=== PATIENT | male | born 1955 | race Two or more races ===

== ENCOUNTER 2023-02-27 04:36 | Inpatient (IN) | payer BC, MEDICAID ==
[~2023-02-27] VITALS: Ht 180.3 cm; Wt 156.7 kg
[2023-02-27 05:27] LABS: Basophils # (auto) 0.1 10 ^3/uL (0-0.2); Basophils % (auto) 1.1 % (0.0-2.0); Eosinophils # (auto) 0.4 10 ^3/uL (0-0.8); Eosinophils % (auto) 4.7 % (0.0-7.0); Hematocrit 40.5 % (41.0-53.0); Hemoglobin 13.6 g/dL (13.5-17.5); Lymphocytes # (auto) 1.7 10 ^3/uL (0.4-5.4); Lymphocytes % (auto) 19.2 % (10.0-50.0); Mean Corpuscular Hemoglobin 29.3 pg (28.0-32.0); Mean Corpuscular Hgb Conc. 33.5 g/dL (32.0-36.0); Mean Corpuscular Volume 87.4 fL (80.0-100.0); Monocytes # (auto) 0.7 10 ^3/uL (0-1.3); Monocytes % (auto) 8.1 % (0.0-12.0); Neutrophils # (auto) 5.9 10 ^3/uL (1.6-8.6); Neutrophils % (auto) 66.9 % (37.0-80.0); Nucleated Red Blood Cells % 0.5 %; Red Blood Cells 4.64 10^6/uL (4.5-5.90); Red Cell Distribution Width 14.6 % (11.8-14.3); White Blood Cell 8.8 10^3/uL (4.4-10.8)
[2023-02-27 05:41] LABS: Albumin 3.4 g/dL (3.4-5.0); BUN/Creatinine Ratio 18.3 (10.0-20.0)
[2023-02-27 05:43] LABS: Bilirubin, Total 0.7 mg/dL (0.2-1.0); Total Protein 7.5 g/dL (6.4-8.2)
[2023-02-27 06:03] LABS: INR 1.02 (0.9-1.15); Partial Thromboplastin Time 28.8 sec (24.6-33.4)
[2023-02-27 12:15] LABS: Urine Bacteria NONE SEEN /hpf (None Seen); Urine Blood Negative /uL (Negative); Urine Mucus FEW (None Seen); Urine Specific Gravity 1.016 (1.001-1.035); Urine WBC 3 /hpf (0 - 3)
[2023-02-27] MEDS ORDERED: ONDANSETRON HCL 4 MG/2 ML VIAL IV PRN (14:00)
[2023-02-27] MEDS ORDERED: MORPHINE SULFATE INJ 2 MG/ml SYRG IV PRN (14:00)
[2023-02-27] MEDS ORDERED: NITROGLYCERIN 0.4 MG SL TAB SL PRN (14:00)
[2023-02-27] MEDS: ALBUTEROL SULF 2.5 MG/0.5ML(0.5%) NEB SOLN NEB SCH ×3 (14:10→21:58)
[2023-02-27] MEDS: cefTRIAXone 1GM/50ML D5W 50 ML IV SCH (15:02)
[2023-02-27] MEDS ORDERED: IOHEXOL 350 MG/ML 100ML IJ ONE (16:03)
[2023-02-27] MEDS ORDERED: hydrALAZINE HCL 20 MG/ML VL IV PRN (16:15)
[2023-02-27 17:07] VITALS: BP 136/106
[2023-02-27] MEDS ORDERED: NIFEdipine ER 30 MG TAB PO SCH (18:00)
[2023-02-27] MEDS: FUROSEMIDE 40 MG/4 ML VIAL IV SCH (18:59)
[2023-02-27] MEDS: PANTOPRAZOLE 40 MG/10 ML VIAL INJ IV SCH (22:48)
[2023-02-27] MEDS: POTASSIUM CHL 10 Meq TABLET PO SCH (22:48)
[2023-02-28] MEDS: FUROSEMIDE 40 MG/4 ML VIAL IV SCH ×2 (06:21→17:51)
[2023-02-28 06:49] LABS: BUN/Creatinine Ratio 13.3 (10.0-20.0); Calcium 9.3 mg/dL (8.5-10.1)
[2023-02-28] MEDS: ALBUTEROL SULF 2.5 MG/0.5ML(0.5%) NEB SOLN NEB SCH ×4 (06:50→17:50)
[2023-02-28] MEDS: PANTOPRAZOLE 40 MG/10 ML VIAL INJ IV SCH (09:17)
[2023-02-28] MEDS: cefTRIAXone 1GM/50ML D5W 50 ML IV SCH (09:17)
[2023-02-28] MEDS: METOPROLOL TARTRATE 25 MG TAB PO SCH ×3 (09:18→22:34)
[2023-02-28] MEDS: POTASSIUM CHL 10 Meq TABLET PO SCH ×2 (09:18→22:33)
[2023-02-28] MEDS ORDERED: IOHEXOL 350 MG/ML 100ML IJ ONE (09:24)
[2023-02-28] MEDS ORDERED: ASPirin-EC 81 mg tab PO SCH (10:00)
[2023-02-28] MEDS ORDERED: ENOXAPARIN SOD 40 MG/0.4 ML SYRINGE SC SCH (10:00)
[2023-02-28] MEDS ORDERED: ATORVASTATIN 20 MG TAB PO SCH (22:00)
[2023-02-28] MEDS: APIXABAN 5 MG TAB PO SCH (22:33)
[2023-02-28 23:10] VITALS: BP 128/80
[2023-02-28 23:27] VITALS: BP 128/80
[2023-03-01 05:00] VITALS: BP 122/79
[2023-03-01] MEDS: FUROSEMIDE 40 MG/4 ML VIAL IV SCH ×2 (05:42→18:00)
[2023-03-01] MEDS: ALBUTEROL SULF 2.5 MG/0.5ML(0.5%) NEB SOLN NEB SCH ×2 (06:15→11:51)
[2023-03-01 07:06] LABS: Potassium 4.1 mmol/L (3.5-5.1)
[2023-03-01 07:09] LABS: BUN/Creatinine Ratio 14.6 (10.0-20.0)
[2023-03-01 08:00] VITALS: BP 161/83
[2023-03-01 09:00] VITALS: BP 161/83
[2023-03-01] MEDS: cefTRIAXone 1GM/50ML D5W 50 ML IV SCH (09:40)
[2023-03-01] MEDS: METOPROLOL TARTRATE 25 MG TAB PO SCH (09:40)
[2023-03-01] MEDS: POTASSIUM CHL 10 Meq TABLET PO SCH (09:41)
[2023-03-01] MEDS: APIXABAN 5 MG TAB PO SCH (09:42)
[2023-03-01] MEDS ORDERED: PANTOPRAZOLE 40 MG TAB PO SCH (10:00)
[2023-03-01] MEDS ORDERED: FURO1TAB31 PO (11:53)
[2023-03-01] MEDS ORDERED: PANT40T PO (11:53)
[2023-03-01] MEDS ORDERED: LISI-716 PO (11:53)
[2023-03-01] MEDS ORDERED: IPRA0.00 IN (11:53)
[2023-03-01] MEDS ORDERED: APIX5TAB PO (11:53)
[2023-03-01] MEDS ORDERED: ATOR20TA50 PO (11:53)
[2023-03-01 13:00] VITALS: BP 128/72
[2023-03-01 17:00] VITALS: BP 136/87
[2023-03-01 17:54] VITALS: BP 161/83
== END 2023-03-01 19:16 | disposition home or self-care (01) | DRG 189 ==
LOC: ER 04:36 → TELE 13:57 → TELE-WESTW 02-28 22:07
PROVIDERS: ADMIT Hospitalist; ATTEND Hospitalist
PROC: 5A09357 Assistance with Respiratory Ventilation, Less than 24 Consecutive Hours, Continuous Positive Airway Pressure (ICD-10-PCS; principal; 2023-02-28)
DX: J96.21 Acute and chronic respiratory failure with hypoxia (principal); Z68.43 Body mass index [BMI] 50.0-59.9, adult; I13.0 Hypertensive heart and chronic kidney disease with heart failure and stage 1 through stage 4 chronic kidney disease, or unspecified chronic kidney disease; I48.92 Unspecified atrial flutter; I48.91 Unspecified atrial fibrillation; E66.01 Morbid (severe) obesity due to excess calories; G47.30 Sleep apnea, unspecified; J44.9 Chronic obstructive pulmonary disease, unspecified; N18.9 Chronic kidney disease, unspecified; I50.9 Heart failure, unspecified; Z83.3 Family history of diabetes mellitus; Z79.01 Long term (current) use of anticoagulants; Z79.899 Other long term (current) drug therapy
CPT/HCPCS: 36415; 36600; 71045; 71275; 80048; 80053; 80061; 81001; 82805; 83605; 83690; 83880; 84484; 85025; 85379; 85610; 85730; 87040; 93005; 93306; 93970; 94640; 94660; 97163; C9113; G0378; J0696

== ENCOUNTER 2023-06-28 06:47 | Day surgery (SDC) | payer BC, MEDICAID ==
[~2023-06-28] VITALS: Ht 180.3 cm; Wt 155.1 kg
[~2023-06-28 06:47] MED LIST: AMIO200T13 PO; APIX5TAB PO; ATOR20TA50 PO; FURO1TAB31 PO; IPRA0.00 IN; LISI10TA34 PO; METO-6 PO; PANT40T PO
[2023-06-28] MEDS ORDERED: fentaNYL CITRATE 100 MCG/2 ML VL ONE (08:24)
[2023-06-28] MEDS ORDERED: LIDOCAINE VISCOUS 2% 15ML UD ONE (08:24)
[2023-06-28] MEDS ORDERED: MIDAZOLAM HCL 2MG/2ML 2ml VIAL (1mg/ml) ONE (08:25)
[2023-06-28] MEDS ORDERED: MIDAZOLAM HCL 2MG/2ML 2ml VIAL (1mg/ml) IV ONE (08:30)
[2023-06-28] MEDS ORDERED: fentaNYL CITRATE 100 MCG/2 ML VL IV ONE (08:30)
[2023-06-28] MEDS ORDERED: LIDOCAINE VISCOUS 2% 15ML UD PO ONE (08:30)
[2023-06-28] MEDS ORDERED: diphenhdrAMINE HCL 50 MG/1 ML VL IV ONE (08:30)
[2023-06-28 08:39] VITALS: BP 140/90; PULSE 54; RESP 12; O2SAT 96
[2023-06-28 08:56] VITALS: BP 128/75; PULSE 50; RESP 15; O2SAT 95
[2023-06-28 09:11] VITALS: BP 118/78; PULSE 61; RESP 15; O2SAT 95
[2023-06-28] MEDS ORDERED: APIXABAN 5 MG TAB PO ONE (09:15)
[2023-06-28 09:26] VITALS: BP 111/75; PULSE 61; RESP 14; O2SAT 93
[2023-06-28 09:41] VITALS: PULSE 63; RESP 20; O2SAT 98
== END 2023-06-28 09:47 | disposition home or self-care (01) ==
LOC: CATH 06:47
PROVIDERS: ATTEND Internal Medicine
DX: I48.92 Unspecified atrial flutter (principal); I08.3 Combined rheumatic disorders of mitral, aortic and tricuspid valves
CPT/HCPCS: 92960; 93005; 93312; J1200; J2250; J3010; J7030; 99152